=== PATIENT | female | born 1965 | race Hispanic/Latino ===

== ENCOUNTER 2021-12-20 12:40 | Emergency (ER) | payer OTHER ==
[2021-12-20] MEDS ORDERED: IBUPROFEN 600 MG TAB PO ONE (21:29)
[2021-12-20] MEDS ORDERED: ONDANSETRON 4 MG ODT TAB PO ONE (21:29)
[2021-12-20] MEDS ORDERED: oxyCODONE /ACETAMINOPHEN 5-325MG TAB PO ONE (21:29)
--- NOTE | 2021-12-20 22:30 | XRay Report ---
Left ankle, 3 views HISTORY: Pain after injury COMPARISON: None FINDINGS: There is an acute minimally displaced oblique fracture involving the distal fibula at the syndesmosis . Minimally displaced fracture of the posterior malleolus of the distal tibia. There is cortical irre gularity of the distal tip of the medial malleolus. Ankle mortise is well profiled, though there appe ars to be widening of the medial ankle gutter. No additional fracture. Diffuse soft tissue swelling. IMPRESSION: Acute trimalleolar left ankle fractures, as above. Signer Name: García Coto MD Signed: 12/20/2021 10:25 PM Workstation Name: [id number]
--- NOTE | 2021-12-20 22:42 | XRay Report ---
Left knee, 3 views HISTORY: Fall COMPARISON: None FINDINGS: There is an acute nondisplaced fracture involving the proximal fibular head. No additional fracture. No joint malalignment. Mild tricompartmental osteoarthritis. Small joint effusion. Signer Name: García Coto MD Signed: 12/20/2021 10:38 PM Workstation Name: [id number]
--- NOTE | 2021-12-21 00:32 | Emergency Department Report ---
ED Fall HPI - General Chief Complaint: Extremity Injury, Lower Stated Complaint: L KNEE PAIN Source: patient, EMS Mode of arrival: Stretcher - History of Present Illness Initial Comments: Patient is a 56-year-old female with a history of multiple sclerosis who presents to the ED with complaint of acute onset persistent left knee and left ankle pain with swelling after she slipped on the floor and fell down landing on the left knee and ankle 24 hours ago. Patient states that she is unable to bear weight on the left leg because of worsening pain and swelling. Patient denies head or neck injuries, dizziness, syncope, seizures, nausea and vomiting, chest pain, shortness of breath, back pain, hip pain, loss of consciousness, change in vision, numbness and tingling or weakness of lower ex tremities bilaterally. MD Complaint: fall, other (left knee and ankle) -: Sudden, hour(s) (24) Fall From: standing, other (fell on bathroom) When Fall Occurred: 24 hours [employer] Fall Witnessed: yes, by family Place Fall Occurred: home Loss of Consciousness: none Prolonged Down Time?: no Symptoms Prior to Fall: none Location: other (left ankle and knee) Location - Extremities: Left: Knee (pain), Ankle (pain) Severity: severe Severity scale (0 -10): 9 Quality: sharp, aching Context: tripped/slipped Associated Symptoms: denies. denies: headache, neck pain, numbness, weakness, chest paint, shortness of breath, abdominal pain, hematuria, unable to walk, lightheaded - Related Data Previous Rx's Medication Instructions Recorded Last Taken Type Cyclobenzaprine [Flexeril] 10 mg PO TID PRN #21 tab 12/21/21 Unknown Rx Ibuprofen [Motrin] 800 mg PO Q8HR PRN #30 tablet 12/21/21 Unknown Rx Oxycodone HCl/Acetaminophen 1 each PO Q6HR PRN #12 tab 12/21/21 Unknown Rx [Percocet 7.5/325 mg] Allergies Allergy/AdvReac Type Severity Reaction Status Date / Time No Known Allergies Allergy Unverified 12/20/21 12:48 ED Review of Systems ROS: Stated complaint: L KNEE PAIN Other details as noted in HPI Constitutional: denies: chills, fever Eyes: denies: eye pain, eye discharge, vision change ENT: denies: ear pain, throat pain Respiratory: denies: cough, shortness of breath, wheezing Cardiovascular: denies: chest pain, palpitations Endocrine: no symptoms reported Gastrointestinal: denies: abdominal pain, nausea, vomiting, diarrhea Genitourinary: denies: urgency, dysuria, discharge Musculoskeletal: joint swelling (Left knee and ankle swelling with pain), arthralgia (Left knee and ankle pain). denies: back pain Skin: denies: rash, lesions Neurological: denies: headache, weakness, paresthesias Psychiatric: denies: anxiety, depression Hematological/Lymphatic: denies: easy bleeding, easy bruising ED Past Medical Hx - Past Medical History Previous Medical History?: Yes Additional medical history: MS - Medications Home Medications: Home Medications Medication Instructions Recorded Confirmed Last Taken Type Cyclobenzaprine [Flexeril] 10 mg PO TID PRN #21 tab 12/21/21 Unknown Rx Ibuprofen [Motrin] 800 mg PO Q8HR PRN #30 tablet 12/21/21 Unknown Rx Oxycodone HCl/Acetaminophen 1 each PO Q6HR PRN #12 tab 12/21/21 Unknown Rx [Percocet 7.5/325 mg] ED Physical Exam - General Limitations: No Limitations General appearance: alert, in no apparent distress - Head Head exam: Present: atraumatic, normocephalic, normal inspection - Eye Eye exam: Present: normal appearance, PERRL, EOMI Pupils: Present: normal accommodation - ENT ENT exam: Present: normal exam, normal orophraynx, mucous membranes moist, TM's normal bilaterally, normal external ear exam - Neck Neck exam: Present: normal inspection, full ROM. Absent: tenderness - Respiratory Respiratory exam: Present: normal lung sounds bilaterally. Absent: respiratory distress, wheezes, rales, chest wall tenderness, accessory muscle use, decreased breath sounds, prolonged expiratory - Cardiovascular Cardiovascular Exam: Present: normal rhythm, tachycardia, normal heart sounds. Absent: systolic murmur, diastolic murmur, rubs, gallop - GI/Abdominal GI/Abdominal exam: Present: soft, normal bowel sounds. Absent: tenderness, guarding, rebound, hyperactive bowel sounds, hypoactive bowel sounds, organomegaly, mass - Extremities Exam Extremities exam: Present: normal inspection, tenderness (Palpable left knee and left ankle pain with swelling and limited range of motion due to pain), normal capillary refill, joint swelling (Swollen left knee and ankle ). Absent: full ROM (Limited range of motion of left knee and left ankle due to pain), pedal edema, calf tenderness - Back Exam Back exam: Present: normal inspection, full ROM. Absent: tenderness, CVA tenderness (R), CVA tenderness (L), muscle spasm, paraspinal tenderness, vertebral tenderness - Neurological Exam Neurological exam: Present: alert, oriented X3, CN II-XII intact, normal gait, reflexes normal - Psychiatric Psychiatric exam: Present: normal affect, normal mood - Skin Skin exam: Present: warm, dry, intact, normal color. Absent: rash ED Course Vital Signs 12/20/21 12/20/21 12:43 22:28 Temperature 98.2 F Pulse Rate 110 H Respiratory 18 16 Rate Blood Pressure 154/70 [Left] O2 Sat by Pulse 98 Oximetry ED Medical Decision Making - Radiology Data Radiology results: report reviewed, image reviewed [facility] [address] [place] [address] XRay Report Signed Patient: RADHIKA ROLAND MR#: [id number] : 1965 Acct:[id number] Age/Sex: 56 / F ADM Date: 12/20/21 Loc: ED Attending Dr: Ordering Physician: PILO AMEZCUA Date of Service: 12/20/21 Procedure(s): XR ankle 3+V LT Accession Number(s): [id number] cc: PILO AMEZCUA Fluoro Time In Minutes: Left ankle, 3 views HISTORY: Pain after injury COMPARISON: None FINDINGS: There is an acute minimally displaced oblique fracture involving the distal fibula at the syndesmosis. Minimally displaced fracture of the posterior malleolus of the distal tibia. There is cortical irregularity of the distal tip of the medial malleolus. Ankle mortise is well profiled, though there appears to be widening of the medial ankle gutter. No additional fracture. Diffuse soft tissue swelling. IMPRESSION: Acute trimalleolar left ankle fractures, as above. Signer Name: Satnam Coto MD Signed: 12/20/2021 10:25 PM Workstation Name: [id number] Transcribed By: JS Dictated By: SATNAM COTO MD Electronically Authenticated By: SATNAM COTO MD Signed Date/Time: 12/20/212224 DD/ 22 TD/TT: Print [facility] [address] [place] [address] XRay Report Signed Patient: RADHIKA ROLADN MR#: [id number] : 1965 Acct:[id number] Age/Sex: 56 / F ADM Date: 12/20/21 Loc: ED Attending Dr: Ordering Physician: PILO AMEZCUA Date of Service: 12/20/21 Procedure(s): XR knee 3V LT Accession Number(s): [id number] cc: PILO AMEZCUA Fluoro Time In Minutes: Left knee, 3 views HISTORY: Fall COMPARISON: None FINDINGS: There is an acute nondisplaced fracture involving the proximal fibular head. No additional fracture. No joint malalignment. Mild tricompartmental osteoarthritis. Small joint effusion. Signer Name: Satnam Coto MD Signed: 12/20/2021 10:38 PM Workstation Name: [id number] Transcribed By: ITALO Dictated By: SATNAM COTO MD Electronically Authenticated By: SATNAM COTO MD Signed Date/Time: 12/20/212237 DD/ 36 TD/TT: - Medical Decision Making This is a 56-year-old female with a history of multiple sclerosis who presents to the ED with complaint of acute onset persistent left knee and left ankle pain with swelling after she slipped on the floor and fell down landing on the left knee and ankle 24 hours ago. Patient states that she is unable to bear weight on the left leg because of worsening pain and swelling. In the ED, patient is alert and oriented x3 and is not in any distress but appears to be in pain, is tachycardic but afebrile in triage. Patient was treated for pain in the ED. Left ankle x-ray showed acute trimalleolar left ankle fractures. Left knee x-ray showed an acute nondisplaced fracture involving the proximal fibular head. No additional fracture. No joint malalignment. Mild tricompartmental osteoarthritis. Small joint effusion. The left ankle was splinted with posterior left leg splint and left knee splint with knee immobilizer. These findings were discussed with the ED attending physician Dr. Rodriguez who agreed with the plan of care. Patient was also given crutches and was given a referral to the orthopedic surgeon on-call Dr. Gutierres for reevaluation. These findings were discussed with the ED attending physician . Patient advised to contact Dr. Gutierres fasting in the morning on Monday, December 21, 2021 to schedule a follow-up appointment. Patient was advised to return to the ED immediately if symptoms get worse. - Differential Diagnosis Ankle fracture; knee fracture; knee sprain; ankle sprain; knee contusion; Critical care attestation.: If time is entered above; I have spent that time in minutes in the direct care of this critically ill patient, excluding procedure time. ED Disposition Clinical Impression: Contusion of left lower leg, initial encounter Displaced trimalleolar fracture of left ankle Qualifiers: Encounter type: initial encounter Fracture type: closed Qualified Code(s): S82.852A - Displaced trimalleolar fracture of left lower leg, initial encounter for closed fracture Closed traumatic nondisplaced fracture of proximal end of left fibula Qualifiers: Encounter type: initial encounter Qualified Code(s): S82.832A - Other fracture of upper and lower end of left fibula, initial encounter for closed fracture Disposition: 01 HOME / SELF CARE / HOMELESS Is pt being admited?: No Does the pt Need Aspirin: No Condition: Stable Instructions: Nondisplaced Fibular Ankle Fracture Treated With Immobilization, Adult, Cast or Splint Care, Adult, [id number], Ankle Fracture, [id number], Fibular Fracture Rehab-SportsMed, Ankle Fracture Rehab-SportsMed, Contusion, [id number] Additional Instructions: Take medication with food, drink plenty of fluids, follow-up with the orthopedic surgeon Dr. Gutierres in 3 to 5 days for reevaluation. Contact Dr. Gutierres's office first thing in the morning on Tuesday, December 21, 2021 to schedule a follow-up appointment. Alternatively you can also follow-up with your own orthopedic surgeon Dr. Gillis as you had suggested. Return to the ED immediately if symptoms get worse. Prescriptions: Cyclobenzaprine [Flexeril] 10 mg PO TID PRN #21 tab PRN Reason: Muscle Spasm Ibuprofen [Motrin] 800 mg PO Q8HR PRN #30 tablet PRN Reason: Pain , Severe (7-10) Oxycodone HCl/Acetaminophen [Percocet 7.5/325 mg] 1 each PO Q6HR PRN #12 tab PRN Reason: Pain Referrals: MAEGAN GUTIERRES MD [Staff Physician] - 3-5 Days FRANKO PERDOMO JR, MD [Primary Care Provider] - 3-5 Days Time of Disposition: 01:27 Print Language: HEBREW
[2021-12-21 02:52] VITALS: BP 139/76
== END 2021-12-21 02:52 | disposition home or self-care (01) ==
LOC: ED 12:40
DX: S82.852A Displaced trimalleolar fracture of left lower leg, initial encounter for closed fracture (principal); S82.492A Other fracture of shaft of left fibula, initial encounter for closed fracture; S80.02XA Contusion of left knee, initial encounter; W19.XXXA Unspecified fall, initial encounter; Y93.89 Activity, other specified; Y92.89 Other specified places as the place of occurrence of the external cause; Y99.8 Other external cause status
CPT/HCPCS: 99284; J3490; Q0162